=== PATIENT | male | born 1965 | race African-American/Black ===

== ENCOUNTER 2024-01-24 20:19 | Emergency (ER) | payer OTHER ==
[~2024-01-24] VITALS: Ht 182.9 cm; Wt 95.0 kg
[2024-01-24 20:25] VITALS: TEMP 98.7; O2SAT 99
[2024-01-24] MEDS: MORPHINE SULFATE 4 MG/ML INJ (FOR IV/IM USE) IM ONE (21:44)
[2024-01-24] MEDS ORDERED: MECL-299 MT (22:04)
[2024-01-24] MEDS ORDERED: CYCL10TA21 MT (22:04)
[2024-01-24] MEDS ORDERED: IBUP-2029 MT (22:04)
[2024-01-24 22:33] VITALS: BP 142/85; PULSE 65; RESP 16; O2SAT 98
== END 2024-01-24 22:44 | disposition home or self-care (01) ==
LOC: ER 20:19
DX: T14.90XA Injury, unspecified, initial encounter (principal); M54.50 Low back pain, unspecified; M25.511 Pain in right shoulder; Z98.890 Other specified postprocedural states; Z68.28 Body mass index [BMI] 28.0-28.9, adult; V49.9XXA Car occupant (driver) (passenger) injured in unspecified traffic accident, initial encounter; Y93.89 Activity, other specified; Y92.89 Other specified places as the place of occurrence of the external cause; Y99.8 Other external cause status
CPT/HCPCS: 73030; 70450; 72131; 96372; 99285; J2270; Z7610